=== PATIENT | male | born 1945 | race Caucasian/White ===

== ENCOUNTER 2018-09-23 22:30 | Inpatient (IN) | payer BC, MEDICARE ==
[2018-09-23] MEDS ORDERED: ACETAMINOPHEN 1,000 MG/100 ML BTL IVPB ONE (22:33)
[2018-09-23] MEDS ORDERED: Diph,Pert(Acell),Tet Vac 0.5 ML SYR IM ONE (22:42)
[2018-09-23] MEDS ORDERED: MORPHINE SULFATE 10MG/1ML **1ML VIAL IVP ONE (22:42)
[2018-09-23 22:43] LABS: BASO % 0.6 % (0-6); EOS % 3.6 % (0-6); GRAN % 66.8 % (47-80); HEMATOCRIT 48.4 % (42.0-52.0); HEMOGLOBIN 15.3 gm/dl (14.0-18.0); LYMPH % 18.5 % (16-45); MEAN CELL VOLUME 94.5 fl (81-97); MEAN CORPUSCULAR HEMOGLOBIN 29.9 pg (27-33); MEAN CORPUSCULAR HGB CONC 31.6 g/dl (32-36); MEAN PLATELET VOLUME 11.2 fl (7.4-10.4); MONO % 10.5 % (0-9); PLATELET COUNT 203 K/uL (130-400); RED BLOOD COUNT 5.12 M/uL (4.40-5.70); RED CELL DISTRIBUTION WIDTH 14.7 % (11.5-14.5); WHITE BLOOD COUNT W/O DIFF 9.4 K/uL (4.2-12.2)
--- NOTE | 2018-09-23 22:44 | Emergency Department Record ---
History of Present Illness - General Chief Complaint: Fall Injury Stated Complaint: FALL INJURY Time Seen by Provider: 09/23/18 22:32 Source: Patient, Family Mode of Arrival: Ambulatory Limitations: No limitations - History of Present Illness Initial Comments: 73 yo male presents after a fall on Wednesday. He was stepping out of a trailer about 10:30pm and mis-stepped. He fell about three steps. He landed on his right side. He did hit his headed. He does not think he was knocked out. He has had right side pain for the last 2 days that has not been controlled at home. No anticoagulants. He drove up from [place] on Wednesday. He has HTN, Hypercholesterol, arthritis. He has had his appendix removed. The fall was unwitnessed. He does smoke. He has been in pain and short of breath the entire time at home. Complaint: Fall Onset/Timin -: Hour(s) Fall From: Down stairs (#) When Fall Occurred: # Days [employer] Fall Witnessed: Yes, by family Place Fall Occurred: Home Loss of Consciousness: None Prolonged Down Time?: No Symptoms Prior to Fall: None Location: Head Severity: Severe Severity scale (1-10): 9 Quality: Aching Context: Tripped/slipped Associated Symptoms: Shortness of breath - Bo Coma Scale Eye Response: (4) Open spontaneously Motor Response: (6) Obeys commands Verbal Response: (5) Oriented [place] Total: 15 - Related Data Home Medications Medication Instructions Recorded Confirmed Last Taken Celecoxib [Celebrex] 50 mg PO DAILY 09/23/18 09/23/18 Unknown Pantoprazole Sodium 40 mg PO DAILY 09/23/18 09/23/18 Unknown Allergies Allergy/AdvReac Type Severity Reaction Status Date / Time No Known Drug Allergies Allergy Verified 09/23/18 22:49 Travel Screening - Travel/Exposure Within Last 30 Days Have you traveled within the last 30 days?: No - Travel Symptoms Symptom Screening: None Review of Systems Constitutional: Denies: Chills, Fever, Malaise, Weakness Eyes: Denies: Eye discharge ENT: Denies: Congestion, Throat pain Respiratory: Reports: Dyspnea. Denies: Cough, Hemoptysis, Stridor, Wheezes Cardiovascular: Reports: Chest pain. Denies: Palpitations, Syncope Endocrine: Denies: Fatigue, Polydipsia, Polyuria Gastrointestinal: Reports: Abdominal pain (RUQ Right side). Denies: Diarrhea, Nausea, Vomiting Genitourinary: Denies: Dysuria, Frequency, Hematuria Musculoskeletal: Reports: Myalgia. Denies: Arthralgia Skin: Denies: Bruising, Change in color, Rash Neurological: Reports: Headache Psychiatric: Denies: Anxiety Hematological/Lymphatic: Denies: Blood Clots, Easy bleeding, Easy bruising, Swollen glands Physical Exam - General General Appearance: Alert, Oriented x3, Cooperative, No acute distress Limitations: No limitations - Head Head exam: Atraumatic, Normocephalic, Normal inspection Head exam detail: negative: Abrasion, Contusion, Larry's sign, CSF otorrhea, CSF rhinorrhea, Hematoma, Laceration - Eye Eye exam: Normal appearance, PERRL. negative: Conjunctival injection - ENT ENT exam: Normal exam, Mucous membranes moist Ear exam: Normal external inspection Nasal Exam: Normal inspection Mouth exam: Normal external inspection Teeth exam: Normal inspection Throat exam: Normal inspection - Neck Neck exam: Normal inspection, Full ROM. negative: Tenderness - Respiratory Respiratory exam: Chest wall tenderness, Decreased breath sounds (bilateral), Other (Mild increase work of breathing). negative: Normal lung sounds bilaterally, Accessory muscle use, Prolonged expiratory, Respiratory distress, W heezes - Cardiovascular Cardiovascular Exam: Normal rhythm, Normal heart sounds, Tachycardia - GI/Abdominal GI/Abdominal exam: Soft, Guarding, Tenderness (tender ruq, right flank) - Rectal Rectal exam: Deferred - exam: Deferred - Extremities Extremities exam: Full ROM, Pedal edema, Other (abrasions). negative: Calf tenderness, Tenderness Image of Full Body: 1 - tenderness, normal inspection 2 - abrasion - Back Back exam: Reports: CVA tenderness (R), Full ROM. Denies: Muscle spasm, Paraspinal tenderness, Tenderness, Vertebral tenderness - Neurological Neurological exam: Alert, CN II-XII intact, Normal gait, Oriented X3. negative: Altered, Motor sensory deficit - Psychiatric Psychiatric exam: Normal affect, Normal mood. negative: Agitated, Anxious - Skin Skin exam: Abrasion, Dry, Normal color, Warm Course Vital Signs 09/23/18 22:33 Pulse Rate [ 110 H Pulse Ox Probe] Respiratory 24 Rate Blood Pressure 154/141 [Left Arm] Pulse Ox 76 L - Reevaluation(s) Reevaluation #1: 09/23/18 22:56 The patient oxygen saturations were 78% on room air with a good wave form He was placed on supplemental oxygen and titrated down to 5LNC He CBC and BMP were reviewed. No anemia. GFR is >60. Trauma CT scans ordered. 09/23/18 23:01 The LFT's are normal 09/23/18 23:04 The Troponin and BNP were reviewed. No significant abnormality. 09/23/18 23:51 The patient is down to 3LNC with improved pain control The HCT was negative for acute injury 09/23/18 23:[address] was negative for acute injury 09/24/18 00:[address] of the abdomen and pelvis was read as negative for acute process. The VRAD CT of the chest was reviewed. Rib fractures of 7,8, and 9 were noted. No other injuries. No pneumothorax. I recommend admission for pain control, monitoring oxygen saturations, and reassess when pain controlled to be off oxygen. Medical Decision Making - Lab Data Result diagrams: 09/23/18 22:38 09/23/18 22:38 Disposition Disposition: Admit Clinical Impression: Rib fractures Disposition: Still a Patient at [facility] Decision to Admit: Admit from ER Decision to Admit Date: 09/24/18 Decision to Admit Time: 00:33 Condition: (2) Stable Time of Disposition: 00:33 Quality - Quality Measures Quality Measures: N/A - Blood Pressure Screening Does Patient Have Any of the Following: No Blood Pressure Classification: Pre-Hypertensive BP Reading Systolic Measurement: 119 Diastolic Measurement: 87 Screening for High Blood Pressure: < Pre-Hypertensive BP, F/U Documented > [[id number]] Pre-Hypertensive Follow-up Interventions: Referral to alternative/primary care provider.
[2018-09-23 22:52] LABS: BLOOD UREA NITROGEN 29 mg/dL (8-23); CREATININE 1.1 mg/dL (0.7-1.2); EST GLOMERULAR FILTRATION RATE > 60 mL/min
[2018-09-23 22:55] LABS: GLUCOSE,RANDOM 117 mg/dL (74-109)
[2018-09-23 22:58] LABS: ALB/GLOB RATIO 1.6 (1.1-1.8); ALBUMIN 4.3 g/dL (4.0-5.0); ALKALINE PHOSPHATASE 78 U/L (40-129); ALT/SGPT 25 U/L (<41); AST/SGOT 21 U/L (10.0-50.0)
[2018-09-24] MEDS: MORPHINE SULFATE 10MG/1ML **1ML VIAL IVP SCH ×6 (01:12→22:50)
[2018-09-24] MEDS: LIDOCAINE 5% PATCH TOP SCH (01:40)
[2018-09-24] MEDS: PANTOPRAZOLE SODIUM 40 MG TABLET PO SCH (06:58)
[2018-09-24] MEDS: ENOXAPARIN 40 MG/0.4 ML SYR SC SCH (10:00)
--- NOTE | 2018-09-24 12:26 | History & Physical ---
History of Present Illness - Date of Service Date of Service for History & Physical: 09/24/18 - History of Present Illness Admitting Diagnosis: Right rib fractures, hypoxia, fall History of Present Illness: 73 yo male presents to the ED the evening of 09/23/18 after a fall on Wednesday (2 days prior). He was stepping out of a trailer about 10:30pm and mis-stepped. He fell about three steps. He landed on his right side. He did hit his headed. He does not think he was knocked out. He has had right side pain for the last 2 days that has not been controlled at home. No anticoagulants. He drove up from [place] on Wednesday. He has HTN, Hyper cholesterol, arthritis. He has had his appendix removed. The fall was unwitnessed. He does smoke. He has been in pain and short of breath the entire time at home. In the ED, BP was 154/141, HR 110, RR 24, and 76% oxygen on room air. The patient oxygen saturations were 78% on room air with a good wave form. He was placed on supplemental oxygen and titrated down to 5LNC. He CBC and BMP were reviewed. No anemia. GFR is >60. Trauma CT scans ordered. LFTs normal, troponin and BNP negative. Titrated oxygen down to 3L nc with improved pain control. Head CT neg for acute process, CSpine CT neg for acute injury. The VRAD CT of the abdomen and pelvis was read as negative for acute process. The VRAD CT of the chest was reviewed. Rib fractures of 7,8, and 9 were noted. No other injuries. No pneumothorax. Pt. was admitted for pain control, monitoring oxygen saturations, and reassess when pain controlled to be off oxygen. 09/24/18: Pt. is resting in bed, he reports some improvement in his pain. He is 95% on 2L nc, pain a 09/26. Pt. is using IS. Will continue to monitor, will add PO pain med for mild-mod pain. Travel Screening - Travel/Exposure Within Last 30 Days Have you traveled within the last 30 days?: No Location Detail:: [place] - Travel/Exposure Within Last Year Have you traveled outside the [place] in the last year?: No - Additonal Travel Details Have you been exposed to anyone with a communicable illness?: No - Travel Symptoms Symptom Screening: None Review of Systems Constitutional: Denies: Chills, Fever, Malaise, Weakness Eyes: Denies: Eye discharge ENT: Denies: Congestion, Throat pain Respiratory: Reports: Dyspnea. Denies: Cough, Hemoptysis, Stridor, Wheezes Cardiovascular: Reports: Chest pain. Denies: Palpitations, Syncope Endocrine: Denies: Fatigue, Polydipsia, Polyuria Gastrointestinal: Reports: Abdominal pain (RUQ Right side). Denies: Diarrhea, Nausea, Vomiting Genitourinary: Denies: Dysuria, Frequency, Hematuria Musculoskeletal: Reports: Myalgia. Denies: Arthralgia Skin: Denies: Bruising, Change in color, Rash Neurological: Reports: Headache Psychiatric: Denies: Anxiety Hematological/Lymphatic: Denies: Blood Clots, Easy bleeding, Easy bruising, Swollen glands Past Medical History - SOCIAL HISTORY Smoking Status: Current every day smoker Alcohol Use: Occasional Drug Use: None - RESPIRATORY Hx Respiratory Disorders: Yes Hx of CPAP: Yes - CARDIOVASCULAR Hx Cardio Disorders: Yes Hx Hypertension: Yes Hx Irregular Heartbeat: Yes (afib with ablation) - NEURO Hx Neuro Disorders: No - GI Hx GI Disorders: Yes Hx Reflux: Yes - Hx Genitourinary Disorders: No - ENDOCRINE Hx Endocrine Disorders: No - MUSCULOSKELETAL Hx Musculoskeletal Disorders: No - PSYCH Hx Psych Problems: No - HEMATOLOGY/ONCOLOGY Hx Hematology/Oncology Disorders: No Family Medical History Any Significant Family History?: Yes Hx Heart Disease: Father, Mother, Brother/Sister H&P Meds/Allergies - Allergies Allergies: Allergies Allergy/AdvReac Type Severity Reaction Status Date / Time No Known Drug Allergies Allergy Verified 09/23/18 22:49 - Home Medications Home Medications Medication Instructions Recorded Confirmed Last Taken Celecoxib [Celebrex] 50 mg PO DAILY 09/23/18 09/23/18 Unknown Pantoprazole Sodium 40 mg PO DAILY 09/23/18 09/23/18 Unknown - Active Medications Active Medications: Current Medications Hydrocodone Bitart/Acetaminophen ([place] 5mg/325mg) 1 each PO Q4H PRN PRN Reason: PAIN - MILD (1-4) Enoxaparin Sodium (Lovenox) 40 mg SC DAILY [facility] Last Admin: 09/24/18 10:00 Dose: 40 mg Documented by: Lidocaine (Lidoderm) 1 each TOP Q24H [facility] Last Admin: 09/24/18 01:40 Dose: 1 each Documented by: Morphine Sulfate (Morphine Sulfate) 4 mg IVP Q4H [facility] Last Admin: 09/24/18 09:59 Dose: 4 mg Documented by: Non-Formulary Medication (Celecoxib [Celebrex]) 50 mg PO DAILY [facility] Pantoprazole Sodium (Protonix) 40 mg PO DAILYAC [facility] Last Admin: 09/24/18 06:58 Dose: 40 mg Documented by: Physical Exam - Vital Signs Vital Signs: Vital Signs - Last 24 Hrs Temp Pulse Resp BP BP Pulse Ox 09/24/18 11:47 97.9 F 70 126/63 95 09/24/18 09:30 92 L 09/24/18 09:00 24 09/24/18 08:00 97.5 F L 61 18 123/68 98 09/24/18 04:00 97.9 F 58 L 16 98 09/24/18 02:01 71 24 09/24/18 00:55 97.9 F 81 24 130/45 130/45 95 09/24/18 00:32 71 24 119/87 99 09/23/18 23:32 78 24 134/42 99 09/23/18 22:55 98.5 F 82 20 145/55 98 09/23/18 22:33 110 H 24 154/141 76 L - General General Appearance: Alert, Oriented x3, Cooperative, No acute distress Limitations: No limitations - Head Head exam: Atraumatic, Normocephalic, Normal inspection Head exam detail: negative: Abrasion, Contusion, Larry's sign, CSF otorrhea, CSF rhinorrhea, Hematoma, Laceration - Eye Eye exam: Normal appearance, PERRL. negative: Conjunctival injection - ENT ENT exam: Normal exam, Mucous membranes moist Ear exam: Normal external inspection Nasal Exam: Normal inspection Mouth exam: Normal external inspection Teeth exam: Normal inspection Throat exam: Normal inspection - Neck Neck exam: Normal inspection, Full ROM. negative: Tenderness - Respiratory Respiratory exam: Chest wall tenderness, Decreased breath sounds (bilateral), Other (Mild increase work of breathing). negative: Normal lung sounds bilaterally, Accessory muscle use, Prolonged expiratory, Respiratory distress, Wheezes - Cardiovascular Cardiovascular Exam: Normal rhythm, Normal heart sounds, Tachycardia - GI/Abdominal GI/Abdominal exam: Soft, Guarding, Tenderness (tender ruq, right flank) - Rectal Rectal exam: Deferred - exam: Deferred - Extremities Extremities exam: Full ROM, Pedal edema, Other (abrasions). negative: Calf tenderness, Tenderness - Back Back exam: Reports: CVA tenderness (R), Full ROM. Denies: Muscle spasm, Paraspinal tenderness, Tenderness, Vertebral tenderness - Neurological Neurological exam: Alert, CN II-XII intact, Normal gait, Oriented X3. negative: Altered, Motor sensory deficit - Psychiatric Psychiatric exam: Normal affect, Normal mood. negative: Agitated, Anxious - Skin Skin exam: Abrasion, Dry, Normal color, Warm Results - Labs Result Diagrams: 09/23/18 22:38 09/23/18 22:38 Labs Last 24 Hours: Laboratory Results - last 24 hr 09/23/18 09/23/18 09/23/18 22:38 22:38 22:38 WBC 9.4 RBC 5.12 Hgb 15.3 Hct 48.4 MCV 94.5 MCH 29.9 MCHC 31.6 L RDW 14.7 H Plt Count 203 MPV 11.2 H Gran % 66.8 Lymphocytes % 18.5 Monocytes % 10.5 H Eosinophils % 3.6 Basophils % 0.6 Absolute Neutrophils 6.30 PT 10.0 INR 1.0 APTT 25.0 Sodium 138 Potassium 4.6 H Chloride 99 Carbon Dioxide 31.0 H Anion Gap 8.0 BUN 29 H Creatinine 1.1 Estimated GFR > 60 Random Glucose 117 H Calcium 10.3 H Total Bilirubin 0.40 AST 21 ALT 25 Alkaline Phosphatase 78 Troponin T < 0.010 NT-Pro-B Natriuret Pep 167.30 H Total Protein 7.0 Albumin 4.3 Globulin 2.7 Albumin/Globulin Ratio 1.6 - Imaging and Cardiology CT scan - chest Status: Report reviewed (Right rib fractures) VTE H&P Assessment - Risk for VTE Risk for VTE: Yes Risk Level: Low Risk Assessment Date: 09/24/18 Risk Assessment Time: 12:34 VTE Orders Placed or Will Be Placed: Yes Plan - Inpatient Certification Inpatient Certification: Admit to inpatient care: Based on my medical assessment, after consideration of patient's risk factors (age, co-morbidities and patient presenting symptoms and acuity), I expect that this patient will remain in the hospital greater than or equal to two midnights and that the services needed warrant inpatient care because: Patient Risk Factors: [Age, comorbidities] Estimated length of stay: [48-96 hours] The patient may reasonably be expected to be discharged or transferred to a hospital within 96 hours after admission to [facility]. Services needed: [pain management, monitoring of oxygenation status] Post hospital care (if known): [] I certify that my determination is in accordance with my understanding of Medicare requirements for reasonable and necessary inpatient services. 09/24/18 12:34 - Detailed Diagnosis and Plan (1) Hypoxia Current Visit: Yes Status: Acute Base Code: R09.02 - HYPOXEMIA Comment: 09/24/18: -Likely secondary to right rib fractures and shallow breathing secondary to pain -Oxygenation upon arrival to ED was 76%, improved quickly with NC -now 95% with 2L nc, will continue to monitor (2) Rib fractures Current Visit: Yes Status: Acute Base Code: S22.39XA - FRACTURE OF ONE RIB, UNSP SIDE, INIT FOR CLOS FX Comment: 09/24/18: -Right rip fractures of 7,8,9 -Encouraging IS -norco 5-325mg q4h prn mild-mod pain, 4mg morphine IVP q4h mod-severe pain (3) At risk for deep venous thrombosis Current Visit: Yes Status: Acute Base Code: Z91.89 - OTH PERSONAL RISK FACTORS, NOT ELSEWHERE CLASSIFIED Comment: 09/24/18: -40mg lovenox sc daily for prophylaxis (4) Full code status Current Visit: Yes Status: Acute Base Code: Z78.9 - OTHER SPECIFIED HEALTH STATUS Comment: 10/04/18: -Pt. is a full code
[2018-09-24] MEDS: HYDROCODONE/APAP 5/325MG TABLET PO PRN ×3 (15:13→23:00)
[2018-09-25] MEDS: LIDOCAINE 5% PATCH TOP SCH (01:23)
[2018-09-25] MEDS: MORPHINE SULFATE 10MG/1ML **1ML VIAL IVP SCH ×4 (01:29→12:50)
[2018-09-25] MEDS: PANTOPRAZOLE SODIUM 40 MG TABLET PO SCH (06:19)
[2018-09-25 06:57] LABS: ABSOLUTE NEUTROPHIL COUNT 5.46; BASO % 0.3 % (0-6); EOS % 1.8 % (0-6); GRAN % 76.8 % (47-80); HEMATOCRIT 45.6 % (42.0-52.0); HEMOGLOBIN 14.1 gm/dl (14.0-18.0); LYMPH % 11.1 % (16-45); MEAN CELL VOLUME 96.2 fl (81-97); MEAN CORPUSCULAR HEMOGLOBIN 29.7 pg (27-33); MEAN CORPUSCULAR HGB CONC 30.9 g/dl (32-36); MEAN PLATELET VOLUME 11.8 fl (7.4-10.4); PLATELET COUNT 178 K/uL (130-400); RED BLOOD COUNT 4.74 M/uL (4.40-5.70); RED CELL DISTRIBUTION WIDTH 14.3 % (11.5-14.5); WHITE BLOOD COUNT W/O DIFF 7.1 K/uL (4.2-12.2)
[2018-09-25 07:11] LABS: ALB/GLOB RATIO 1.4 (1.1-1.8); ALBUMIN 3.6 g/dL (4.0-5.0); ALKALINE PHOSPHATASE 70 U/L (40-129); ALT/SGPT 20 U/L (<41); AST/SGOT 18 U/L (10.0-50.0); BLOOD UREA NITROGEN 17 mg/dL (8-23); CREATININE 0.6 mg/dL (0.7-1.2); EST GLOMERULAR FILTRATION RATE > 60 mL/min; GLUCOSE,RANDOM 125 mg/dL (74-109); TOTAL PROTEIN 6.1 g/dL (6.6-8.7)
[2018-09-25] MEDS: HYDROCODONE/APAP 5/325MG TABLET PO PRN ×2 (09:16→15:06)
[2018-09-25] MEDS: ENOXAPARIN 40 MG/0.4 ML SYR SC SCH (09:18)
--- NOTE | 2018-09-25 10:38 | Physician Progress Note ---
Subjective - Date Date of Physician Progress Note: 09/25/18 - Subjective Subjective Comment: 09/25/18: -Pt. more dyspnic this am- now on 3L O2- 96%, will continue to monitor. Started PO pain med today- [place], continue lidoderm patch. Objective - Vital Signs Vital Signs: Vital Signs - Last 24 Hrs Temp Pulse Pulse Resp BP BP BP 09/25/18 08:00 97.8 F 63 17 119/74 09/25/18 07:48 24 09/25/18 00:00 98.4 F 71 18 159/90 09/24/18 21:00 74 16 09/24/18 20:00 98.8 F 74 16 158/80 09/24/18 16:00 98.1 F 71 16 115/64 09/24/18 15:42 97.9 F 126/63 09/24/18 14:07 82 09/24/18 11:47 97.9 F 70 126/63 Pulse Ox 09/25/18 08:00 96 09/25/18 07:48 09/25/18 00:00 95 09/24/18 21:00 09/24/18 20:00 95 09/24/18 16:00 94 L 09/24/18 15:42 09/24/18 14:07 93 L 09/24/18 11:47 95 - General General Appearance: Alert, Oriented x3, Cooperative, No acute distress Limitations: No limitations - Head Head exam: Atraumatic, Normocephalic, Normal inspection Head exam detail: negative: Abrasion, Contusion, Larry's sign, CSF otorrhea, CSF rhinorrhea, Hematoma, Laceration - Eye Eye exam: Normal appearance, PERRL. negative: Conjunctival injection - ENT ENT exam: Normal exam, Mucous membranes moist Ear exam: Normal external inspection Nasal Exam: Normal inspection Mouth exam: Normal external inspection Teeth exam: Normal inspection Throat exam: Normal inspection - Neck Neck exam: Normal inspection, Full ROM. negative: Tenderness - Respiratory Respiratory exam: Chest wall tenderness, Decreased breath sounds (bilateral), Other (Mild increase work of breathing). negative: Normal lung sounds bilaterally, Accessory muscle use, Prolonged expiratory, Respiratory distress, Wheezes - Cardiovascular Cardiovascular Exam: Normal rhythm, Normal heart sounds, Tachycardia - GI/Abdominal GI/Abdominal exam: Soft, Guarding, Tenderness (tender ruq, right flank) - Rectal Rectal exam: Deferred - exam: Deferred - Extremities Extremities exam: Full ROM, Pedal edema, Other (abrasions). negative: Calf tenderness, Tenderness - Back Back exam: Reports: CVA tenderness (R), Full ROM. Denies: Muscle spasm, Paraspinal tenderness, Tenderness, Vertebral tenderness - Neurological Neurological exam: Alert, CN II-XII intact, Normal gait, Oriented X3. negative: Altered, Motor sensory deficit - Psychiatric Psychiatric exam: Normal affect, Normal mood. negative: Agitated, Anxious - Skin Skin exam: Abrasion, Dry, Normal color, Warm Assessment and Plan - Assessment and Plan (1) Hypoxia Current Visit: Yes Status: Acute Base Code: R09.02 - HYPOXEMIA Comment: : -Likely secondary to right rib fractures and shallow breathing secondary to pain -Oxygenation upon arrival to ED was 76%, improved quickly with NC -now 96% with 3L nc, will continue to monitor (2) Rib fractures Current Visit: Yes Status: Acute Base Code: S22.39XA - FRACTURE OF ONE RIB, UNSP SIDE, INIT FOR CLOS FX Comment: 09/25/18: -Right rip fractures of 7,8,9 -Encouraging IS -norco 5-325mg q4h prn mild-mod pain, 4mg morphine IVP q4h mod-severe pain (3) At risk for deep venous thrombosis Current Visit: Yes Status: Acute Base Code: Z91.89 - OTH PERSONAL RISK FACTORS, NOT ELSEWHERE CLASSIFIED Comment: 09/25/18: -40mg lovenox sc daily for prophylaxis (4) Full code status Current Visit: Yes Status: Acute Base Code: Z78.9 - OTHER SPECIFIED HEALTH STATUS Comment: 09/25/18: -Pt. is a full code Results - Labs Result Diagrams: 09/25/18 06:00 09/25/18 06:00 Labs Last 24 Hours: Laboratory Results - last 24 hr 09/25/18 09/25/18 06:00 06:00 WBC 7.1 RBC 4.74 Hgb 14.1 Hct 45.6 MCV 96.2 MCH 29.7 MCHC 30.9 L RDW 14.3 Plt Count 178 MPV 11.8 H Gran % 76.8 Lymphocytes % 11.1 L Monocytes % 10.0 H Eosinophils % 1.8 Basophils % 0.3 Absolute Neutrophils 5.46 Sodium 138 Potassium 4.6 H Chloride 99 Carbon Dioxide 31.0 H Anion Gap 8.0 BUN 17 Creatinine 0.6 L Estimated GFR > 60 Random Glucose 125 H Calcium 9.4 Total Bilirubin 0.60 AST 18 ALT 20 Alkaline Phosphatase 70 Total Protein 6.1 L Albumin 3.6 L Globulin 2.5 Albumin/Globulin Ratio 1.4 DVT/PE Assessment - Risk for VTE Risk for VTE: No Risk Level: Low Risk Assessment Date: 09/24/18 Risk Assessment Time: 12:34 VTE Orders Placed or Will Be Placed: Yes - Active Medicaitons Current Medications: Current Medications Hydrocodone Bitart/Acetaminophen ([place] 5mg/325mg) 1 each PO Q4H PRN PRN Reason: PAIN - MILD (1-4) Last Admin: 09/25/18 09:16 Dose: 1 each Documented by: Enoxaparin Sodium (Lovenox) 40 mg SC DAILY [facility] Last Admin: 09/25/18 09:18 Dose: 40 mg Documented by: Lidocaine (Lidoderm) 1 each TOP Q24H [facility] Last Admin: 09/25/18 01:23 Dose: 1 each Documented by: Morphine Sulfate (Morphine Sulfate) 4 mg IVP Q4H [facility] Last Admin: 09/25/18 08:50 Dose: Not Given Documented by: Non-Formulary Medication (Celecoxib [Celebrex]) 50 mg PO DAILY [facility] Pantoprazole Sodium (Protonix) 40 mg PO DAILYAC [facility] Last Admin: 09/25/18 06:19 Dose: 40 mg Documented by: AMI Plan - Labs Result Diagrams: 09/25/18 06:00 09/25/18 06:00
[2018-09-25] MEDS: MORPHINE SULFATE 10MG/1ML **1ML VIAL IVP PRN (17:44)
[2018-09-26] MEDS: LIDOCAINE 5% PATCH TOP SCH (02:16)
[2018-09-26] MEDS: HYDROCODONE/APAP 5/325MG TABLET PO PRN ×3 (02:20→09:48)
[2018-09-26] MEDS: PANTOPRAZOLE SODIUM 40 MG TABLET PO SCH (06:00)
[2018-09-26 06:48] LABS: ABSOLUTE NEUTROPHIL COUNT 5.45; BASO % 0.4 % (0-6); EOS % 3.8 % (0-6); GRAN % 69.3 % (47-80); HEMATOCRIT 46.6 % (42.0-52.0); HEMOGLOBIN 14.2 gm/dl (14.0-18.0); LYMPH % 14.9 % (16-45); MEAN CELL VOLUME 96.9 fl (81-97); MEAN CORPUSCULAR HEMOGLOBIN 29.5 pg (27-33); MEAN CORPUSCULAR HGB CONC 30.5 g/dl (32-36); MONO % 11.6 % (0-9); PLATELET COUNT 186 K/uL (130-400); RED BLOOD COUNT 4.81 M/uL (4.40-5.70); RED CELL DISTRIBUTION WIDTH 14.1 % (11.5-14.5); WHITE BLOOD COUNT W/O DIFF 7.9 K/uL (4.2-12.2)
[2018-09-26 07:05] LABS: ALB/GLOB RATIO 1.4 (1.1-1.8); ALBUMIN 3.6 g/dL (4.0-5.0); ALKALINE PHOSPHATASE 68 U/L (40-129); ALT/SGPT 20 U/L (<41); AST/SGOT 16 U/L (10.0-50.0); BLOOD UREA NITROGEN 13 mg/dL (8-23); CREATININE 0.7 mg/dL (0.7-1.2); EST GLOMERULAR FILTRATION RATE > 60 mL/min; GLUCOSE,RANDOM 103 mg/dL (74-109); TOTAL PROTEIN 6.2 g/dL (6.6-8.7)
--- NOTE | 2018-09-26 07:37 | CT SCAN REPORT ---
EXAM: CT OF THE HEAD WITHOUT CONTRAST HISTORY: THIS IS A 73-YEAR-OLD MALE WITH BLUNT TRAUMA. FALL FROM THIRD STEP TO GROUND. TECHNIQUE: Routine noncontrast CT images of the head were obtained. Comparison: None. FINDINGS: The ventricles, basal cisterns, and sulci are of normal size, shaped and configuration. No midline shift or mass effect. Colon white differentiation is well maintained throughout both cerebral hemispheres though there is evidence for acute ischemia. No intracranial mass or hemorrhage. There are atherosclerotic calcifications. The orbital contents are unremarkable. The paranasal sinuses and mastoid air cells are essentially clear. IMPRESSION: NO ACUTE INTRACRANIAL ABNORMALITY. JOB NUMBER: [id number] [facility]
--- NOTE | 2018-09-26 07:41 | CT SCAN REPORT ---
EXAM: CT OF THE CERVICAL SPINE WITHOUT CONTRAST HISTORY: THIS IS A 73-YEAR-OLD MALE WHO HAD BLUNT TRAUMA. FALL FROM STEPS. TECHNIQUE: Routine CT images of the cervical spine were obtained without contrast. FINDINGS: No fracture, subluxation, or significant loss of vertebral body height. There is mild cervical degenerative disk and facet disease with end plate spurring greater than disk space narrowing. Moderate atlantodental degenerative change. The paraspinal soft tissues are unremarkable. The visualized lung apices are clear. IMPRESSION: NO ACUTE CERVICAL SPINE ABNORMALITY. MILD SPONDYLOSIS. JOB NUMBER: [id number] [facility]
--- NOTE | 2018-09-26 07:47 | CT SCAN REPORT ---
EXAM: CT OF THE CHEST WITH CONTRAST HISTORY: THIS IS A 73-YEAR-OLD MALE WITH FALL FROM STEPS APPROXIMATELY TWO DAYS PRIOR. RIGHT LATERAL RIB AND UPPER ABDOMINAL PAIN. TECHNIQUE: Routine CT images of the chest were obtained following intravenous administration of contrast, amount and type of contrast is noted in the medical record. FINDINGS: The heart is not enlarged. No pericardial effusion. Mild aortic atherosclerosis. No mediastinal or hilar lymph node enlargement. Small hiatal hernia. Mild bibasilar atelectasis or scarring. No focal consolidation, pleural effusion or pneumothorax. The visualized upper abdomen demonstrates colonic diverticulosis. There are fractures of the right anterior sixth through eighth and anterolateral ninth ribs. There is moderate thoracic spondylosis. IMPRESSION: 1. FRACTURES OF THE ANTERIOR SIXTH THROUGH EIGHTH AND ANTEROLATERAL NINTH RIBS. 2. MILD BIBASILAR ATELECTASIS OR SCARRING. 3. OTHERWISE NO ACUTE PROCESS WITHIN THE CHEST. JOB NUMBER: [id number] [facility]
--- NOTE | 2018-09-26 08:03 | CT SCAN REPORT ---
EXAM: CT OF THE ABDOMEN AND PELVIS WITH CONTRAST HISTORY: FALL FROM STEPS TO THE GROUND, RIB PAIN AND UPPER ABDOMINAL PAIN. TECHNIQUE: Routine CT images of the abdomen and pelvis were obtained following intravenous administration of contrast, amount and type of contrast is noted in the medical record. Comparison: None. FINDINGS: Mild bibasilar atelectasis or scarring. There is a small hypodensity in the medial segment of the left lobe of the liver probably a cyst or hemangioma. The gallbladder, pancreas, spleen, and adrenals are unremarkable. The kidneys enhance normally with contrast. There is a small hiatal hernia. There is colonic diverticulosis without CT evidence for diverticulitis. There is a prominent volume of stool in the colon. The appendix is surgically absent. The bladder is unremarkable. The prostate is enlarged and demonstrates calcifications. Moderate atherosclerotic calcifications. The aorta is normal in caliber. No abdominal or pelvic lymphadenopathy. No free air or free fluid. There is a small fat containing periumbilical hernia. There are bilateral fat containing inguinal hernia. No acute osseous abnormality. Moderate lumbar spondylosis and Grade 1 retrolisthesis of L3-L4. IMPRESSION: 1. NO ACUTE PROCESS WITHIN THE ABDOMEN OR PELVIS. 2. THERE ARE PARTIALLY VISUALIZED LOWER RIGHT RIB FRACTURES. PLEASE SEE CONCURRENT CT CHEST FOR FURTHER DISCUSSION. 3. LEFT RENAL CYST. COLONIC DIVERTICULOSIS. HYPODENSITY WITHIN THE LEFT LOBE OF THE LIVER PROBABLY A CYST OR HEMANGIOMA THOUGH DIFFICULT TO FULLY CHARACTERIZE. JOB NUMBER: [id number] [facility]
[2018-09-26] MEDS: ENOXAPARIN 40 MG/0.4 ML SYR SC SCH (09:48)
[2018-09-26] MEDS: CELECOXIB 100 MG CAPSULE PO SCH (10:49)
[2018-09-26] MEDS: GUAIFENESIN 1,200 MG TABLET PO SCH ×2 (13:32→22:03)
[2018-09-26] MEDS: HYDROCODONE/APAP 7.5/325MG TABLET PO PRN ×3 (13:32→22:56)
[2018-09-26] MEDS: LISINOPRIL 20 MG TABLET PO SCH (13:58)
--- NOTE | 2018-09-26 15:07 | Physician Progress Note ---
Subjective - Date Date of Physician Progress Note: 09/26/18 - Subjective Subjective Comment: 09/25/18: -Pt. more dyspnic this am- now on 3L O2- 96%, will continue to monitor. Started PO pain med today- [place], continue lidoderm patch. 09/26/18: -Home oxygen qualifier completed this morning- pt will require 2L at rest and with activity. Increased norco from 5-325 to 7.5-325mg today for pain. Reinforced use of IS and provided education regarding why IS is necessary for maintaining lung health with rib fractures. Objective - Vital Signs Vital Signs: Vital Signs - Last 24 Hrs Temp Pulse Resp BP BP BP Pulse Ox 09/26/18 12:00 97.7 F 67 17 123/67 96 09/26/18 10:59 97.5 F L 122/65 09/26/18 08:10 24 09/26/18 07:36 97.5 F L 92 H 16 122/65 93 L 09/26/18 04:00 98.6 F 63 18 154/78 100 09/26/18 00:00 98.4 F 62 18 137/73 96 09/25/18 21:00 63 18 09/25/18 20:07 98.1 F 63 18 162/76 97 09/25/18 16:00 98.8 F 67 17 142/73 95 - General General Appearance: Alert, Oriented x3, Cooperative, No acute distress Limitations: No limitations - Head Head exam: Atraumatic, Normocephalic, Normal inspection Head exam detail: negative: Abrasion, Contusion, Larry's sign, CSF otorrhea, CSF rhinorrhea, Hematoma, Laceration - Eye Eye exam: Normal appearance, PERRL. negative: Conjunctival injection - ENT ENT exam: Normal exam, Mucous membranes moist Ear exam: Normal external inspection Nasal Exam: Normal inspection Mouth exam: Normal external inspection Teeth exam: Normal inspection Throat exam: Normal inspection - Neck Neck exam: Normal inspection, Full ROM. negative: Tenderness - Respiratory Respiratory exam: Chest wall tenderness, Decreased breath sounds (bilateral), Other (Mild increase work of breathing). negative: Normal lung sounds bilaterally, Accessory muscle use, Prolonged expiratory, Respiratory distress, Wheezes - Cardiovascular Cardiovascular Exam: Normal rhythm, Normal heart sounds, Tachycardia - GI/Abdominal GI/Abdominal exam: Soft, Guarding, Tenderness (tender ruq, right flank) - Rectal Rectal exam: Deferred - exam: Deferred - Extremities Extremities exam: Full ROM, Pedal edema, Other (abrasions). negative: Calf tenderness, Tenderness - Back Back exam: Reports: CVA tenderness (R), Full ROM. Denies: Muscle spasm, P araspinal tenderness, Tenderness, Vertebral tenderness - Neurological Neurological exam: Alert, CN II-XII intact, Normal gait, Oriented X3. negative: Altered, Motor sensory deficit - Psychiatric Psychiatric exam: Normal affect, Normal mood. negative: Agitated, Anxious - Skin Skin exam: Abrasion, Dry, Normal color, Warm Assessment and Plan - Assessment and Plan (1) Hypoxia Current Visit: Yes Status: Acute Base Code: R09.02 - HYPOXEMIA Comment: 09/26/18: -Likely secondary to right rib fractures and shallow breathing secondary to pain -Oxygenation upon arrival to ED was 76%, improved quickly with NC -now 93% with 2L nc, will continue to monitor (2) Rib fractures Current Visit: Yes Status: Acute Base Code: S22.39XA - FRACTURE OF ONE RIB, UNSP SIDE, INIT FOR CLOS FX Comment: 09/26/18: -Right rip fractures of 7,8,9 -Encouraging IS -norco 7.5-325mg q4h prn mild-mod pain, lidoderm patch (3) At risk for deep venous thrombosis Current Visit: Yes Status: Acute Base Code: Z91.89 - OTH PERSONAL RISK FA CTORS, NOT ELSEWHERE CLASSIFIED Comment: 09/26/18: -40mg lovenox sc daily for prophylaxis (4) Full code status Current Visit: Yes Status: Acute Base Code: Z78.9 - OTHER SPECIFIED HEALTH STATUS Comment: 09/26/18: -Pt. is a full code Results - Labs Result Diagrams: 09/26/18 06:32 09/26/18 06:32 Labs Last 24 Hours: Laboratory Results - last 24 hr 09/26/18 09/26/18 06:32 06:32 WBC 7.9 RBC 4.81 Hgb 14.2 Hct 46.6 MCV 96.9 MCH 29.5 MCHC 30.5 L RDW 14.1 Plt Count 186 MPV 11.0 H Gran % 69.3 Lymphocytes % 14.9 L Monocytes % 11.6 H Eosinophils % 3.8 Basophils % 0.4 Absolute Neutrophils 5.45 Sodium 139 Potassium 4.7 H Chloride 97 L Carbon Dioxide 34.0 H Anion Gap 8.0 BUN 13 Creatinine 0.7 Estimated GFR > 60 Random Glucose 103 Calcium 9.6 Total Bilirubin 0.60 AST 16 ALT 20 Alkaline Phosphatase 68 Total Protein 6.2 L Albumin 3.6 L Globulin 2.6 Albumin/Globulin Ratio 1.4 DVT/PE Assessment - Risk for VTE Risk for VTE: No Risk Level: Low Risk Assessment Date: 09/24/18 Risk Assessment Time: 12:34 VTE Orders Placed or Will Be Placed: Yes - Active Medicaitons Current Medications: Current Medications Hydrocodone Bitart/Acetaminophen ([place] 7.5mg/325mg) 1 each PO Q4H PRN PRN Reason: PAIN - MOD TO SEVERE (5-10) Last Admin: 09/26/18 13:32 Dose: 1 each Documented by: Celecoxib (Celebrex) 200 mg PO DAILY [facility] Last Admin: 09/26/18 10:49 Dose: 200 mg Documented by: Enoxaparin Sodium (Lovenox) 40 mg SC DAILY [facility] Last Admin: 09/26/18 09:48 Dose: 40 mg Documented by: Guaifenesin (Mucinex) 1,200 mg PO BID [facility] Last Admin: 09/26/18 13:32 Dose: 1,200 mg Documented by: Lidocaine (Lidoderm) 1 each TOP Q24H [facility] Last Admin: 09/26/18 02:16 Dose: 1 each Documented by: Lisinopril (Zestril) 40 mg PO DAILY [facility] Last Admin: 09/26/18 13:58 Dose: 40 mg Documented by: Morphine Sulfate (Morphine Sulfate) 4 mg IVP Q4H PRN PRN Reason: PAIN - MOD TO SEVERE (5-10) Last Admin: 09/25/18 17:44 Dose: 4 mg Documented by: Pantoprazole Sodium (Protonix) 40 mg PO DAILYAC [facility] Last Admin: 09/26/18 06:00 Dose: 40 mg Documented by: Tamsulosin HCl (Flomax) 0.8 mg PO QHS [facility] AMI Plan - Labs Result Diagrams: 09/26/18 06:32 09/26/18 06:32
[2018-09-26] MEDS ORDERED: TAMSULOSIN HCL 0.4 MG CAP.ER.24H PO SCH (22:00)
[2018-09-27] MEDS: LIDOCAINE 5% PATCH TOP SCH (00:22)
[2018-09-27] MEDS: PANTOPRAZOLE SODIUM 40 MG TABLET PO SCH (06:41)
[2018-09-27] MEDS: HYDROCODONE/APAP 7.5/325MG TABLET PO PRN (07:40)
[2018-09-27] MEDS: MORPHINE SULFATE 10MG/1ML **1ML VIAL IVP PRN (08:54)
[2018-09-27] MEDS ORDERED: HYDROCODONE/APAP 7.5/325MG TABLET PO PRN (09:37)
[2018-09-27] MEDS: LISINOPRIL 20 MG TABLET PO SCH (09:54)
[2018-09-27] MEDS: CELECOXIB 100 MG CAPSULE PO SCH (09:55)
[2018-09-27] MEDS: ENOXAPARIN 40 MG/0.4 ML SYR SC SCH (09:55)
[2018-09-27] MEDS: GUAIFENESIN 1,200 MG TABLET PO SCH (09:55)
[2018-09-27] MEDS ORDERED: AZITHROMYCIN 500 MG TABLET PO SCH (12:00)
--- NOTE | 2018-09-27 12:16 | Physician Progress Note ---
Subjective - Date Date of Physician Progress Note: 09/27/18 - Subjective Subjective Comment: Pain is not controlled per patient report, is unable to perform IS to goal of 2500 due to pain. Continues to take shallow breaths and is not adequately mobile. No reports of constipation or trouble urinating. Continues to require O2 for sats high 70s-80s at rest. Did have a positive home O2 qualifier yesterday.He does report he wears a CPAP and does have it with him locally where he is staying but is not using it while hospitalized. Objective - Vital Signs Vital Signs: Vital Signs - Last 24 Hrs Temp Pulse Resp BP Pulse Ox 09/27/18 08:00 97.9 F 74 18 126/51 98 09/26/18 21:00 66 18 09/26/18 20:00 98.4 F 66 18 142/65 95 09/26/18 16:00 98.6 F 63 18 142/78 95 - General General Appearance: Alert, Oriented x3, Cooperative, No acute distress Limitations: No limitations - Head Head exam: Atraumatic, Normocephalic, Normal inspection Head exam detail: negative: Abrasion, Contusion, Larry's sign, CSF otorrhea, CSF rhinorrhea, Hematoma, Laceration - Eye Eye exam: Normal appearance, PERRL. negative: Conjunctival injection - ENT ENT exam: Normal exam, Mucous membranes moist Ear exam: Normal external inspection Nasal Exam: Normal inspection Mouth exam: Normal external inspection Teeth exam: Normal inspection Throat exam: Normal inspection - Neck Neck exam: Normal inspection, Full ROM. negative: Tenderness - Respiratory Respiratory exam: Chest wall tenderness, Decreased breath sounds (bilateral), Other (Mild increase work of breathing). negative: Normal lung sounds bilaterally, Accessory muscle use, Prolonged expiratory, Respiratory distress, Wheezes - Cardiovascular Cardiovascular Exam: Normal rhythm, Normal heart sounds, Tachycardia - GI/Abdominal GI/Abdominal exam: Soft, Guarding, Tenderness (tender ruq, right flank) - Rectal Rectal exam: Deferred - exam: Deferred - Extremities Extremities exam: Full ROM, Pedal edema, Other (abrasions). negative: Calf tenderness, Tenderness - Back Back exam: Reports: CVA tenderness (R), Full ROM. Denies: Muscle spasm, Paraspinal tenderness, Tenderness, Vertebral tenderness - Neurological Neurological exam: Alert, CN II-XII intact, Normal gait, Oriented X3. negative: Altered, Motor sensory deficit - Psychiatric Psychiatric exam: Normal affect, Normal mood. negative: Agitated, Anxious - Skin Skin exam: Abrasion, Dry, Normal color, Warm Assessment and Plan - Assessment and Plan (1) Rib fractures Current Visit: Yes Status: Acute Qualifiers: Encounter type: initial encounter Rib fracture type: multiple ribs Fracture type: closed Laterality: right Qualified Code(s): S22.41XA - Multiple fractures of ribs, right side, initial encounter for closed fracture Base Code: S22.39XA - FRACTURE OF ONE RIB, UNSP SIDE, INIT FOR CLOS FX Comm ent: 09/27/18: -Right rib fractures of 7,8,9 -Encouraging IS hourly -Unable to perform adequate levels of IS or shift in bed/sitting position due to paibn, continues to require O2 -[place] increased to 7.5-325mg 2 tqabs q4h prn , lidoderm patch, MS Q4PRN breakthough pain - CXR today due to persistent hypoxia-> RLL pleural effusion, bibasilar atelectasis (unchanged from admit imaging) - Plan to control pain for goal of DC oxygen - Encourage sitting in chair and frequent ambulation (2) Hypoxia Current Visit: Yes Status: Acute Base Code: R09.02 - HYPOXEMIA Comment: 09/27/18: -Likely secondary to right rib fractures and shallow breathing secondary to pain -Oxygenation upon arrival to ED was 76%, improved quickly with NC -now 93% with 2L nc, will continue to monitor - CXR today-> RLL pleural effusion, bibasilar atelectasis (3) At risk for deep venous thrombosis Current Visit: Yes Status: Acute Base Code: Z91.89 - OTH PERSONAL RISK FACTORS, NOT ELSEWHERE CLASSIFIED Comment: 09/27/18: -40mg lovenox sc daily for prophylaxis (4) Full code status Current Visit: Yes Status: Acute Base Code: Z78.9 - OTHER SPECIFIED HEALTH STATUS Comment: 09/27/18: -Pt. is a full code Results - Labs Result Diagrams: 09/26/18 06:32 09/26/18 06:32 DVT/PE Assessment - Risk for VTE Risk for VTE: No Risk Level: Low Risk Assessment Date: 09/24/18 Risk Assessment Time: 12:34 VTE Orders Placed or Will Be Placed: Yes - Active Medicaitons Current Medications: Current Medications Hydrocodone Bitart/Acetaminophen ([place] 7.5mg/325mg) 2 each PO Q4H PRN PRN Reason: PAIN - MOD TO SEVERE (5-10) Azithromycin (Zithromax) 500 mg PO DAILY [facility] Celecoxib (Celebrex) 200 mg PO DAILY [facility] Last Admin: 09/27/18 09:55 Dose: 200 mg Documented by: Enoxaparin Sodium (Lovenox) 40 mg SC DAILY [facility] Last Admin: 09/27/18 09:55 Dose: 40 mg Documented by: Guaifenesin (Mucinex) 1,200 mg PO BID [facility] Last Admin: 09/27/18 09:55 Dose: 1,200 mg Documented by: Lidocaine (Lidoderm) 1 each TOP Q24H [facility] Last Admin: 09/27/18 00:22 Dose: 1 each Documented by: Lisinopril (Zestril) 40 mg PO DAILY [facility] Last Admin: 09/27/18 09:54 Dose: 40 mg Documented by: Morphine Sulfate (Morphine Sulfate) 4 mg IVP Q4H PRN PRN Reason: PAIN - MOD TO SEVERE (5-10) Last Admin: 09/27/18 08:54 Dose: 4 mg Documented by: Pantoprazole Sodium (Protonix) 40 mg PO DAILYAC [facility] Last Admin: 09/27/18 06:41 Dose: 40 mg Documented by: Tamsulosin HCl (Flomax) 0.8 mg PO QHS [facility] Last Admin: 09/26/18 22:04 Dose: 0.8 mg Documented by: AMI Plan - Labs Result Diagrams: 09/26/18 06:32 09/26/18 06:32
--- NOTE | 2018-09-27 15:34 | Discharge Summary ---
Providers Discharge Summary Date: 09/27/18 Date of admission: 09/24/18 00:50 Expected Date of Discharge: 09/27/18 Attending physician: CR BRITT Physical Exam - Vital Signs Vital Signs: Vital Signs - Last 24 Hrs Temp Pulse Resp BP Pulse Ox 09/27/18 14:56 17 95 09/27/18 12:00 97.7 F 67 18 110/61 97 09/27/18 08:00 97.9 F 74 18 126/51 98 09/26/18 21:00 66 18 09/26/18 20:00 98.4 F 66 18 142/65 95 09/26/18 16:00 98.6 F 63 18 142/78 95 - General General Appearance: Alert, Oriented x3, Cooperative, No acute distress Limitations: No limitations - Head Head exam: Atraumatic, Normocephalic, Normal inspection Head exam detail: negative: Abrasion, Contusion, Larry's sign, CSF otorrhea, CSF rhinorrhea, Hematoma, Laceration - Eye Eye exam: Normal appearance, PERRL. negative: Conjunctival injection - ENT ENT exam: Normal exam, Mucous membranes moist Ear exam: Normal external inspection Nasal Exam: Normal inspection Mouth exam: Normal external inspection Teeth exam: Normal inspection Throat exam: Normal inspection - Neck Neck exam: Normal inspection, Full ROM. negative: Tenderness - Respiratory Respiratory exam: Chest wall tenderness, Decreased breath sounds (bilateral), Other (Mild increase work of breathing). negative: Normal lung sounds bilaterally, Accessory muscle use, Prolonged expiratory, Respiratory distress, Wheezes - Cardiovascular Cardiovascular Exam: Normal rhythm, Normal heart sounds, Tachycardia - GI/Abdominal GI/Abdominal exam: Soft, Guarding, Tenderness (tender ruq, right flank) - Rectal Rectal exam: Deferred - exam: Deferred - Extremities Extremities exam: Full ROM, Pedal edema, Other (abrasions). negative: Calf tenderness, Tenderness - Back Back exam: Reports: CVA tenderness (R), Full ROM. Denies: Muscle spasm, Paraspinal tenderness, Tenderness, Vertebral tenderness - Neurological Neurological exam: Alert, CN II-XII intact, Normal gait, Oriented X3. negative: Altered, Motor sensory deficit - Psychiatric Psychiatric exam: Normal affect, Normal mood. negative: Agitated, Anxious - Skin Skin exam: Abrasion, Dry, Normal color, Warm Hospitalization - Hospitalization Admission Diagnosis: Right rib fractures, hypoxia, fall - Problem List/Discharge Diagnosis (1) Rib fractures Current Visit: Yes Status: Acute Discharge Diagnosis: Encounter type: initial encounter Rib fracture type: multiple ribs Fracture type: closed Laterality: right Qualified Code(s): S22.41XA - Multiple fractures of ribs, right side, initial encounter for closed fracture Base Code: S22.39XA - FRACTURE OF ONE RIB, UNSP SIDE, INIT FOR CLOS FX Comment: 09/27/18: -Right rib fractures of 7,8,9 -Encouraging IS hourly -Able to perform adequate levels of IS or shift in bed/sitting position after increase of [place], RA SPO2 93% -[place] increased to 7.5-325mg 2 tqabs q4h prn , lidoderm patch, MS Q4PRN breakthough pain - CXR today due to persistent hypoxia-> RLL pleural effusion, bibasilar atelectasis (unchanged from admit imaging) - DC O2 - Encourage sitting in chair and frequent ambulation - Follow up with PCP 3 days as scheduled (2) Hypoxia Current Visit: Yes Status: Acute Base Code: R09.02 - HYPOXEMIA Comment: 09/27/18: -Likely secondary to right rib fractures and shallow breathing secondary to pain -Oxygenation upon arrival to ED was 76%, improved quickly with NC -now 93% with 2L nc, will continue to monitor - CXR today-> RLL pleural effusion, bibasilar atelectasis (3) At risk for deep venous thrombosis Current Visit: Yes Status: Acute Base Code: Z91.89 - OTH PERSONAL RISK FACTORS, NOT ELSEWHERE CLASSIFIED Comment: 09/27/18: -40mg lovenox sc daily for prophylaxis (4) Full code status Current Visit: Yes Status: Acute Base Code: Z78.9 - OTHER SPECIFIED HEALTH STATUS Comment: 09/27/18: -Pt. is a full code - Hospitalization Course Disposition: Home, Self-Care Hospital Course: 73 yo male presents to the ED the evening of 09/23/18 after a fall on Wednesday (2 days prior). He was stepping out of a trailer about 10:30pm and mis-stepped. He fell about three steps. He landed on his right side. He did hit his headed. He does not think he was knocked out. He has had right side pain for the last 2 days that has not been controlled at home. No anticoagulants. He drove up from [place] on Wednesday. He has HTN, Hypercholesterol, arthritis. He has had his appendix removed. The fall was unwitnessed. He does smoke. He has been in pain and short of breath the entire time at home. In the ED, BP was 154/141, HR 110, RR 24, and 76% oxygen on room air. The patient oxygen saturations were 78% on room air with a good wave form. He was placed on supplemental oxygen and titrated down to 5LNC. He CBC and BMP were reviewed. No anemia. GFR is >60. Trauma CT scans ordered. LFTs normal, troponin and BNP negative. Titrated oxygen down to 3L nc with improved pain control. Head CT neg for acute process, CSpine CT neg for acute injury. The [facility]AD CT of the abdomen and pelvis was read as negative for acute process. The [facility]AD CT of the chest was reviewed. Rib fractures of 7,8, and 9 were noted. No other injuries. No pneumothorax. Pt. was admitted for pain control, monitoring oxygen saturations, and reassess when pain controlled to be off oxygen. 09/24/18: Pt. is resting in bed, he reports some improvement in his pain. He is 95% on 2L nc, pain a 6/10. Pt. is using IS. Will continue to monitor, will add PO pain med for mild-mod pain. 09/27/18- Hospital course unremarkable. Pain level 2/10 with increase of [place] 7.5 2 tabs Q 4-6hr PRN, is able to walk the length of the hallway without shortness of breath. Does report still has pain to right trunk but is more comfortable. SPO2 93-98% RA at rest and activity. Observed using IS to full capacity. Will DC home with use of IS hourly, frequent ambulation. Follow up PCP in 3 days. Procedures: Imaging and X-Rays 09/23/18 22:33 ABDOMEN/PELVIS W CONTRAST [CT] Stat CERVICAL SPINE WO CONTRAST [CT] Stat CHEST W CONTRAST [CT] Stat HEAD WO CONTRAST [CT] Stat 09/27/18 09:34 CHEST 2 VIEWS [RAD] Stat Cardiology Procedures 09/23/18 22:33 Hadoop Architect NOW 09/24/18 00:54 Hadoop Architect .Continuous Abnormal Labs: Abnormal Lab Results 09/23/18 09/23/18 09/25/18 Range/Units 22:38 22:38 06:00 MCHC 31.6 L 30.9 L (32-36) g/dl RDW 14.7 H (11.5-14.5) % MPV 11.2 H 11.8 H (7.4-10.4) fl Lymphocytes % 11.1 L (16-45) % Monocytes % 10.5 H 10.0 H (0-9) % Potassium 4.6 H (3.4-4.5) mmol/L Chloride (98-107) mmol/L Carbon Dioxide 31.0 H (22-29) mmol/L BUN 29 H (8-23) mg/dL Creatinine (0.7-1.2) mg/dL Random Glucose 117 H (74-109) mg/dL Calcium 10.3 H (8.8-10.2) mg/dL NT-Pro-B Natriuret Pep 167.30 H (<125) pg/mL Total Protein (6.6-8.7) g/dL Albumin (4.0-5.0) g/dL 09/25/18 09/26/18 09/26/18 Range/Units 06:00 06:32 06:32 MCHC 30.5 L (32-36) g/dl RDW (11.5-14.5) % MPV 11.0 H (7.4-10.4) fl Lymphocytes % 14.9 L (16-45) % Monocytes % 11.6 H (0-9) % Potassium 4.6 H 4.7 H (3.4-4.5) mmol/L Chloride 97 L (98-107) mmol/L Carbon Dioxide 31.0 H 34.0 H (22-29) mmol/L BUN (8-23) mg/dL Creatinine 0.6 L (0.7-1.2) mg/dL Random Glucose 125 H (74-109) mg/dL Calcium (8.8-10.2) mg/dL NT-Pro-B Natriuret Pep (<125) pg/mL Total Protein 6.1 L 6.2 L (6.6-8.7) g/dL Albumin 3.6 L 3.6 L (4.0-5.0) g/dL Condition at Discharge: (2) Stable Discharge Medications - Discharge Medications Prescriptions: Azithromycin 250 mg PO DAILY #4 tablet Lidocaine Patch [Lidoderm] 1 each TOP Q24H #14 patch Hydrocodone/APAP 7.5/325Mg [[place] 7.5MG/325Mg] 2 each PO Q4H PRN #30 tab PRN Reason: Pain - Mod To Severe (5-10) Home Medications: Ambulatory Orders Pantoprazole Sodium 40 mg PO DAILY 09/23/18 [Last Taken Unknown] Celecoxib [Celebrex] 200 mg PO DAILY 09/26/18 [Last Taken Unknown] Lisinopril 40 mg PO DAILY 09/26/18 [Last Taken Unknown] Tamsulosin HCl [Flomax] 0.8 mg PO QHS 09/26/18 [Last Taken Unknown] Azithromycin 250 mg PO DAILY #4 tablet 09/27/18 [Last Taken Unknown] Celecoxib [Celebrex] 200 mg PO DAILY cap 09/27/18 [Last Taken Unknown] Hydrocodone/APAP 7.5/325Mg [[place] 7.5MG/325Mg] 2 each PO Q4H PRN #30 tab 09/27/18 [Last Taken Unknown] Lidocaine Patch [Lidoderm] 1 each TOP Q24H #14 patch 09/27/18 [Last Taken Unknown] Tamsulosin HCl [Flomax] 0.8 mg PO QHS cap.er.24h 09/27/18 [Last Taken Unknown] Discharge Plan - Discharge Instructions Activity at Discharge: Increase Activity as Tolerated Diet at Discharge: Advance to Usual Diet Additional Instructions: September 30 at 9:20AM: Hospital follow up appointment with Norma Ricketts NP at [facility]. Enter through [address] off of [facility] [address]. Please bring new patient paperwork to first appointment. Colace over the counter for narcotic related constipation If your insurance does not cover Lidoderm patches you may use Salonpas Lidocaine patch over the counter Use incentive spirometer hourly (10 inhalations) Frequent walks Cough and deep breathe often No driving until you follow up with PCP Quality Measures - Quality Measures Quality Measures: Advance Directives, Documentation of Current Medications in Medical Record, Elder Maltreatment Screen and Follow-Up Plan, Screening for High Blood Pressure and F/U Documented - Current Medications Quality Measure: Measure #130: Documentation of Current Medications Documentation of Current Medications: <Current Medications Documented/Reviewed> [[id number]] - Blood Pressure Screening Quality Measure: Screening for High Blood Pressure and Follow-Up Documented Does Patient Have Any of the Following: Active Dx of HTN Blood Pressure Classification: Pre-Hypertensive BP Reading Systolic Measurement: 122 Diastolic Measurement: 65 Screening for High Blood Pressure: Patient Exclusion, Hx of HTN [G9744] - Advance Directives Quality Measure: Measure #47: Care Plan Advance Directives Established: No Advance Directives Information Provided To Patient: No Advance Directives on File: No Advance Care Planning: <Care Plan/Decision Maker Documented; Discussed & Documented> [[id number]] - Elder Abuse Suspicion Index Screening: Elder Abuse Suspicion Index Screening Rely on people for bathing, dressing, shopping, banking, etc: No Prevented from getting food, clothes, medication, etc: No Made to feel shamed or threatened by someone: No Forced to sign papers or use money against will: No Feel afraid, touched in ways not wanted or hurt physically: No Poor eye contact, withdrawn, malnourished, cuts or bruises: No Screening Result: Negative result EASI Reference Information: Saul ALMAGUER, Marleny C, Rosmery D, Lila Barclay.Development and validation of a tool to assist physicians identification of elder abuse: The Elder Abuse Suspicion Index (EASI ). Journal of Elder Abuse and Neglect, 2008; 20 (3): 276-300. - Elder Maltreatment Screen Quality Measures: Elder Maltreatment Screen and Follow-Up Plan Elder Maltreatment Screen: <Negative, No Follow-Up Plan Required> [[id number]]
--- NOTE | 2018-09-28 07:38 | RADIOLOGY REPORT ---
EXAM: CHEST, TWO VIEWS HISTORY: HYPOXIA. DIFFICULTY BREATHING. FRACTURES OF THE RIGHT SIXTH THROUGH NINTH RIBS ON 09/23/18. TECHNIQUE: Two views of the chest were obtained. FINDINGS: The heart is normal in size. There is mild calcification of the aorta. The mediastinum and pulmonary vasculature are normal. There is mild bibasilar atelectasis. There are no acute infiltrates or effusions. There is no pneumothorax. The nondisplaced fracture involving the lateral aspect of the right eighth rib is faintly visible. The other right rib fractures are not seen on these views. There is minor blunting of the right costophrenic angles consistent with a tiny effusion. Degenerative changes are present within the spine. IMPRESSION: 1. TINY RIGHT PLEURAL EFFUSION AND MILD BIBASILAR ATELECTASIS. 2. NO ACUTE PULMONARY INFILTRATES OR PNEUMOTHORAX. JOB NUMBER: [id number] [facility]
== END 2018-09-27 16:13 | disposition home or self-care (01) | DRG 185 ==
LOC: ER 22:30 → MEDSURG 09-24 00:50
PROVIDERS: ADMIT Internal Medicine; ATTEND Internal Medicine
DX: S22.41XA Multiple fractures of ribs, right side, initial encounter for closed fracture (principal); W10.8XXA Fall (on) (from) other stairs and steps, initial encounter; R09.02 Hypoxemia; R06.02 Shortness of breath; I10 Essential (primary) hypertension; I48.91 Unspecified atrial fibrillation; E78.00 Pure hypercholesterolemia, unspecified; K21.9 Gastro-esophageal reflux disease without esophagitis; F17.210 Nicotine dependence, cigarettes, uncomplicated
CPT/HCPCS: 70450; 71046; 71260; 72125; 74177; 80053; 83880; 84484; 85025; 85610; 85730; 90715; 94010; 94618; 94760; 94761; 96365; 96372; 96374; 99223; 99233; 99285; J1650; J2270